=== PATIENT | female | born 1965 | race Caucasian/White ===

== ENCOUNTER → 2018-05-29 19:22 | Outpatient (CLI) | payer OTHER, SELFPAY | PROVIDERS: PCP Family Medicine; Visit Provider Physician Assistant | DX: N39.0 Urinary tract infection, site not specified (principal) | CPT/HCPCS: 87086 ==

== ENCOUNTER → 2018-10-20 14:11 | Outpatient (CLI) | payer OTHER, SELFPAY ==
[2018-10-20 15:18] LABS: Free T3, Triiodothyronine Free 3.43 pg/mL (2.77-5.27); Free T4, Direct Thyroxine 1.09 ng/dL (0.78-2.19)
[2018-10-20 15:32] LABS: Thyroid Stimulating Hormone 0.99 uIU/mL (0.47-4.68)
== END ==
PROVIDERS: PCP Family Medicine; Visit Provider Family Medicine
DX: E04.9 Nontoxic goiter, unspecified (principal)
CPT/HCPCS: 36415; 84439; 84443; 84481

== ENCOUNTER → 2018-11-03 12:16 | Outpatient (CLI) | payer OTHER, SELFPAY ==
--- NOTE | 2018-11-03 12:17 | DI.MG.S_ITS ---
BILATERAL DIGITAL SCREENING MAMMOGRAM 3D/2D WITH CAD: 11/03/2018 CLINICAL: Routine screening. Family history of breast cancer. Comparison is made to exams dated: 10/28/2017 mammogram, 10/20/2016 mammogram, and 10/16/2015 mammogram - [facility]. There are scattered fibroglandular elements in both breasts. Current study was also evaluated with a Computer Aided Detection (CAD) system. No significant masses, calcifications, or other findings are seen in either breast. There has been no significant interval change. IMPRESSION: NEGATIVE There is no mammographic evidence of malignancy. A 1 year screening mammogram is recommended. This exam was interpreted at Station ID: [id number]. NOTE: For mammograms, a report in lay terms will be sent to the patient. Approximately 15% of breast malignancies will not be visualized mammographically. In the management of a palpable breast mass, a negative mammogram must not discourage biopsy of a clinically suspicious lesion. Electronically Signed By: Belen hunter/colleen:11/03/2018 19:17:26 letter sent: Normal Exam ACR BI-RADS Category 1: Negative 3341F
== END ==
PROVIDERS: PCP Family Medicine; Visit Provider Obstetrics & Gynecology
DX: Z12.31 Encounter for screening mammogram for malignant neoplasm of breast (principal); Z80.3 Family history of malignant neoplasm of breast
CPT/HCPCS: 77063; 77067

== ENCOUNTER 2019-06-21 06:49 | Day surgery (SDC) | payer OTHER, SELFPAY ==
[2019-06-21] VITALS (7 sets, daily range): BP systolic 105–128; BP diastolic 73–84; PULSE 52–66; RESP 15–18; TEMP 36.1–36.4; O2SAT 92–98; BMI 32.7
--- NOTE | 2019-06-21 | PATH_ITS ---
[facility] Accession Number: [id number] . 01 Material submitted: . PART A: gastrointestinal site - RANDOM STOMACH BIOPSIES PART B: esophagus - ESOPHAGEAL BIOPSIES . 02 Diagnosis: A. Stomach, Biopsies: Gastric antral and body mucosa with mild chronic inflammation. Negative for Helicobacter organisms by immunohistochemistry. Negative for intestinal metaplasia, dysplasia or malignancy. . B. Esophagus, Biopsies: Squamocolumnar junctional mucosa with ulcer, consistent with reflux esophagitis. Negative for fungal organisms on PAS stain. Negative for specialized intestinal metaplasia on alcian blue stain. Negative for dysplasia or malignancy. [facility]V 06/23/2019 1407 Local . 02 Electronically signed: . Rafita Sanders MD, PhD, Pathologist NPI- [id number] . 01 Gross description: . Part A: RANDOM STOMACH BIOPSIES: Received in formalin are multiple fragment(s) of mcmullen, soft tissue measuring 0.1 x 0.1 x 0.1 cm to 0.4 x 0.2 x 0.1 cm which is entirely submitted and submitted entirely in 1 cassette(s) Part B: ESOPHAGEAL BIOPSIES: Received in formalin are multiple fragment(s) of mcmullen, soft tissue measuring 0.1 x 0.1 x 0.1 cm to 0.3 x 0.3 x 0.2 cm which is entirely submitted and submitted entirely in 1 cassette(s) /[facility] [place]/21/2019 192 Local . 02 Microscopic: . Part A: An immunohistochemical stain is performed to evaluate for Helicobacter organisms, and is negative. A control stain shows appropriate reactivity. . Part B: An alcian blue stain is negative for goblet cells; no fungal organisms are identified. A control stain shows expected reactivity. . * This test was developed and its performance characteristics determined by [employer]. It has not been cleared or approved by the U.S. Food and Drug Administration. The FDA has determined that such clearance or approval is not necessary. This test is used for clinical purposes. It should not be regarded as investigational or for research. . 02 Pathologist provided ICD-10: R13.10, K29.70, K21.0 . 02 CPT . 433543, 526439, B20488, 291810 Performed at: 01 [facility] [address] [place] [address], [place], [place] [id number] MD David Modi MD Phone: [phone] Performed at: 02 [facility] [address] [place] [id number] MD Carol Ann Camejo MD Phone: [phone]
--- NOTE | 2019-06-21 08:03 | PM.HP.1 ---
History of Present Illness History of Present Illness Date Patient Seen: 06/21/19 Time Patient Seen: 08:03 Chief complaint: [id number] Narrative: The patient is a woman here with dysphagia. She is scheduled for an EGD and possible dilatation. Patient History Medical History delivery delivered (Acute) Goiter (Acute) Melanoma (Acute) Prolapsed bladder (Acute) Surgical History Status post delivery Family History (Updated 05/17/19 @ 16:07 by Amy Green, RN) Mother Hypertension Father Cancer Sister Gallstones Social History (Updated 05/17/19 @ 16:07 by Amy Green, RN) Smoking Status: Never smoker Family & Social History Family History Mother Hypertension Father Cancer Sister Gallstones Tobacco & Substance use: Smoking Status Never smoker Meds Home Medications and Allergies Home Medications Medication Instructions Recorded Confirmed Type zinc 50 mg tablet 50 mg PO DAILY 05/17/19 06/21/19 History mv,Ca,min-iron fupp-UJ-qyntiv 1 tab PO DAILY 06/21/19 06/21/19 History [Hair,Skin and Nails] Allergies Allergy/AdvReac Type Severity Reaction Status Date / Time iodine [IODINE] Allergy Mild Rash Verified 06/21/19 07:06 latex [LATEX] Allergy Mild itching Verified 06/21/19 07:06 amoxicillin [AMOXICILLIN] Allergy Unknown Daughters Verified 06/21/19 07:06 are allergic to it.Doesnt want to take this Review of Systems Review of Systems ROS Unobtainable: All systems reviewed & are unremarkable except as noted in HPI and below Exam Vital Signs (past 8 hours): - 06/21/19 07:12 Temperature 97.4 F L Pulse Rate 58 L Respiratory Rate 15 Blood Pressure 113/83 Pulse Oximetry 93 Oxygen Delivery Method Room Air Narrative Exam Narrative: Pleasant cooperative patient no apparent distress. Lungs are clear to auscultation. No rales or rhonchi. Heart regular rate and rhythm no murmur gallop. Abdomen is soft nontender without mass. No obvious hernias. Patient is alert and oriented x3. Assessment & Plan Assessment & Plan narrative: Patient for an EGD and possible dilatation. I have discussed procedure. She understands the risks of bleeding and perforation. She wishes to proceed.
--- NOTE | 2019-06-21 08:05 | PM.PREOP ---
Pre-operative Note Interval Note History & Physical reviewed/Exam performed by Physician: Yes Changes to H&P: No ASA Class (for procedural sedation): I
[2019-06-21] MEDS: SODIUM CHLORIDE 0.9% 1,000 ML 200 ML IV (08:07)
[2019-06-21] MEDS: LIDOCAINE 4% SOLN 50 ML 20 ML TOP (08:12)
[2019-06-21] MEDS: fentaNYL 250 MCG/5 ML INJ IV (08:34)
[2019-06-21] MEDS: MIDAZOLAM 5 MG/5 ML VIAL IV (08:35)
--- NOTE | 2019-06-21 08:37 | PM.OP.ENDO ---
Operative Date/Time/Diagnoses Date of procedure: 06/21/19 Time of procedure: 08:37 Pre-op diagnosis: Dysphagia Post-op diagnosis: same (Distal esophageal ulcers. Small hiatal hernia. Duodenitis.) Procedure & Clinicians Study performed: EGD with cold biopsies Same procedure as scheduled: Yes Indications: Determine cause of dysphagia Surgeon: Danny Lundberg Procedure Notes SCOAP/Timeout: Performed Procedure in detail: The patient had topical anesthetic applied to oropharynx. She was placed in left lateral decubitus position and underwent IV sedation directed by the surgeon consisting of fentanyl and Versed. A bite block was inserted and the scope was advanced through it into the esophagus. The esophagus was remarkable for linear ulcerations with exudate on some of them. They extended from a few cm above the GE junction to the GE junction. They were not typical of but could represent Esparza's esophagus. GE junction was noted at 37 cm from the incisors. The stomach insufflated well. There were no lesions seen in the body, or at the incisura but the antrum had some punctate areas of inflammation.. The pyloric channel was patent. The duodenal bulb had numerous areas of inflammation but no tanvir ulceration. The remainder of the duodenum Was unremarkable to the 4th part. The scope was brought back into the stomach and retroflexed. The proximal stomach had no inflammation but there was a small hiatal hernia noted from below. Biopsies were taken randomly in the area of the antrum.. The scope was straightened and brought out through the esophagus again. Biopsies were taken of the ulcerations of the distal esophagus. No other lesions were seen. The scope was removed and the patient tolerated the procedure well. No stricture of the distal esophagus was seen. Scope withdrawal time: Not applicable Sedation minutes: 12 Findings: hiatal hernia (Small) and other findings (Duodenitis and esophageal ulcers) Specimen(s): other (Gastric and esophageal biopsies) Complications: none Impression: Dysphagia thought to be caused by the ulceration of her distal esophagus and probable failure of motility in that area due to inflammation. Post-procedure Recommendations: Start medication(s) (Proton pump inhibitor) Plan for aftercare: Follow-up in 1 month Follow up: months (One) Disposition: PACU
== END 2019-06-21 09:18 | disposition home or self-care (01) ==
PROVIDERS: PCP Family Medicine; Visit Provider Specialist
PROC: 0DJ08ZZ Inspection of Upper Intestinal Tract, Via Natural or Artificial Opening Endoscopic (ICD-10-PCS; CPT 43235; principal; 2019-06-21 07:45)
DX: K22.10 Ulcer of esophagus without bleeding (principal); K44.9 Diaphragmatic hernia without obstruction or gangrene; K29.80 Duodenitis without bleeding; K29.70 Gastritis, unspecified, without bleeding; K21.0 Gastro-esophageal reflux disease with esophagitis
CPT/HCPCS: 43239; 99152; J2250; J3010

== ENCOUNTER → 2019-07-29 08:11 | Outpatient (CLI) | payer OTHER, SELFPAY ==
[2019-07-29 08:57] LABS: Add Manual Diff / Slide Review NO; Basophils Absolute Auto 0 /uL (0-100); Basophils Percent Auto 0.9 % (0-2); Eosinophils Absolute Auto 100 /uL (0-450); Eosinophils Percent Auto 2.2 % (2-4); Hemoglobin 13.7 g/dL (12.0-16.0); Lymphocytes Absolute Auto 1600 /uL (1100-4500); Lymphocytes Percent Auto 37.9 % (25-40); Mean Corpuscular HGB Conc 34.3 % (30-36); Mean Corpuscular Hemoglobin 29.9 PG (26-34); Mean Corpuscular Volume 87.1 fL (80-100); Monocytes Absolute Auto 300 /uL (0-900); Monocytes Percent Auto 7.8 % (3-14); Neutrophils Absolute Auto 2200 /uL (1500-7000); Neutrophils Percent Auto 51.2 % (50-75); Platelet Count 195 X10^3/uL (150-400); Red Blood Cell Count 4.59 X10^6/uL (4.0-5.2); Red Cell Distribution Width 12.6 % (11.6-14.8); White Blood Cell Count 4.3 X10^3/uL (4.5-11.0)
[2019-07-29 09:20] LABS: Alanine Aminotransferase 41 IU/L (<35); Albumin 4.2 g/dL (3.5-5.0); Albumin Globulin Ratio 1.7 (1.0-2.8); Alkaline Phosphatase 80 U/L (38-126); Aspartate Aminotransferase 31 IU/L (14-36); BUN Creatinine Ratio 21.4 (6-22); Bilirubin Total 0.6 mg/dL (0.2-1.3); Blood Urea Nitrogen 15 mg/dL (7-17); Calcium 9.7 mg/dL (8.4-10.2); Carbon Dioxide 30 mmol/L (22-32); Chloride 102 mmol/L (98-107); Cholesterol 201 mg/dL (140-199); Estimated Glomerular Filt Rate > 60.0 mL/min (>60); Globulin 2.5 g/dL (1.7-4.1); Glucose 98 mg/dL (70-100); HDL Cholesterol 53 mg/dL (40-60); HEMOLYSIS < 15 (0-50); LDL Cholesterol Calculated 137 mg/dL (<100); Potassium 4.2 mmol/L (3.4-5.1); Sodium 139 mmol/L (137-145); Total Protein 6.7 g/dL (6.3-8.2); Triglycerides 55 mg/dL (35-150)
== END ==
PROVIDERS: PCP Family Medicine; Visit Provider Family Medicine
DX: Z00.00 Encounter for general adult medical examination without abnormal findings (principal); Z13.220 Encounter for screening for lipoid disorders
CPT/HCPCS: 36415; 80053; 80061; 85025

== ENCOUNTER → 2019-08-04 12:35 | Outpatient (CLI) | payer OTHER, SELFPAY ==
[2019-08-04 13:46] LABS: Thyroid Stimulating Hormone 1.23 uIU/mL (0.47-4.68)
== END ==
PROVIDERS: PCP Family Medicine; Visit Provider Internal Medicine Endocrinology, Diabetes & Metabolism
DX: E04.2 Nontoxic multinodular goiter (principal)
CPT/HCPCS: 36415; 84443

== ENCOUNTER → 2019-08-10 08:13 | Outpatient (CLI) | payer OTHER, SELFPAY ==
--- NOTE | 2019-08-10 | DI.US.S_ITS ---
PROCEDURE: US THYROID INDICATIONS: Nontoxic multinodular goiter TECHNIQUE: Real-time scanning was performed of the thyroid gland, with image documentation. COMPARISON: [facility], US, THYROID, 07/22/2016, 12:11. FINDINGS: Right: Thyroid lobe measures 5.6 x 2.1 x 2.2 cm, and is homogeneous in echotexture. Left: Thyroid lobe measures 6.1 x 2.8 x 2.8 cm, and is homogenous in echotexture. Isthmus: 1.0 mm thick. Nodule number: 1 Location: Right superior Size: Unchanged at 0.8 x 0.6 x 0.4 cm. Composition: Solid Echogenicity: Hypoechoic Shape: wider than tall. Margins: Smooth Echogenic foci: None Total points: 4 ACR TI-RADS category: Moderately suspicious Nodule number: 2 Location: Right lower Size: Unchanged 0.9 x 0.7 x 0.6 Composition: Predominantly cystic Echogenicity: Hypoechoic Shape: wider than tall. Margins: Smooth Echogenic foci: None Total points: 2 ACR TI-RADS category: No suspicious Nodule number: 3 Location: Right lower Size: Slightly increased at 1.2 x 1.0 x 0.9 cm. Composition: Mixed cystic and solid Echogenicity: Hypoechoic Shape: wider than tall. Margins: Smooth Echogenic foci: None Total points: 3 ACR TI-RADS category: Mildly suspicious Nodule number: 4 Location: Left mid inferior Size: Unchanged at 3.2 x 2.0 x 2.4 cm. Composition: Solid Echogenicity: Isoechoic Shape: wider than tall. Margins: Smooth Echogenic foci: None Total points: 3 ACR TI-RADS category: Mildly suspicious Nodule number: 5 Location: Left mid Size: Unchanged 0.6 x 0.6 x 0.6 cm. Composition: Solid Echogenicity: Isoechoic Shape: wider than tall. Margins: Smooth Echogenic foci: None Total points: 3 ACR TI-RADS category: Mildly suspicious Nodule number: 6 Location: Left mid Size: 0.8 x 0.6 x 0.5 cm. Composition: Predominantly cystic Echogenicity: Hypoechoic Shape: wider than tall. Margins: Smooth Echogenic foci: None Total points: 4 ACR TI-RADS category: Moderately suspicious IMPRESSION: Thyroid nodules as above. Recommend continued followup ultrasound as detailed below. ACR TI-RADS definitions and recommendations: TI-RADS 1 (benign): 0 points. FNA not needed. TI-RADS 2 (not suspicious): 2 points. FNA not needed. TI-RADS 3 (mildly suspicious): 3 points. * FNA if 2.5 cm or larger, follow up if 1.5 cm or larger (at 1, 3, and 5 years). TI-RADS 4 (moderately suspicious): 4-6 points. * FNA if 1.5 cm or larger, follow up if 1 cm or larger (at 1, 2, 3, and 5 years). TI-RADS 5 (highly suspicious): 7 points or more. * FNA if 1 cm or larger, follow up if 0.5 cm or larger (every year for 5 years). Dictated by: Elias HESTER Interpreted: Pritesh Telles MD on 08/12/2019 at 8:17 Approved by: Pritesh Telles M.D. on 08/12/2019 at 16:50
== END ==
PROVIDERS: PCP Family Medicine; Visit Provider Internal Medicine Endocrinology, Diabetes & Metabolism
DX: E04.2 Nontoxic multinodular goiter (principal)
CPT/HCPCS: 76536

== ENCOUNTER 2019-10-27 07:34 | Day surgery (SDC) | payer OTHER, SELFPAY ==
--- NOTE | 2019-10-27 | PATH_ITS ---
[facility] Accession Number: [id number] . 01 Material submitted: . esophagus, E-G Junction - BIOPSY GE JUNCTION . 02 Diagnosis: Biopsy, GE Junction: Squamocolumnar junctional mucosa with no diagnostic abnormality. Negative for intestinal metaplasia. Negative for dysplasia and malignancy. . [facility] 10/28/2019 1432 Local . 02 Electronically signed: . Rosa Leon MD, Pathologist NPI- [id number] . 01 Gross description: . BIOPSY GE JUNCTION: Received in formalin is 1 fragment(s) of mcmullen, soft tissue measuring 0.1 x 0.1 x 0.1 cm submitted entirely in 1 cassette(s) /[facility] [place] 10/27/2019 1906 Local . 02 Pathologist provided ICD-10: K22.10, K20.9 . 02 CPT . 403699 Performed at: [address] [facility] [address] [facility] [place]note 2], [place], [place] [id number] MD David Modi MD Phone: [phone] Performed at: 02 [facility] [address] [place], [place] [id number] MD Carol Ann Camejo MD Phone: [phone]
[2019-10-27] MEDS: SODIUM CHLORIDE 0.9% 1,000 ML 200 ML IV (08:00)
[2019-10-27 08:03] VITALS: BP 115/79; PULSE 58; RESP 15; TEMP 36.8; O2SAT 92; BMI 32.1
[2019-10-27] MEDS: fentaNYL 250 MCG/5 ML INJ IV (09:27)
[2019-10-27] MEDS: MIDAZOLAM 5 MG/ML VIAL 1 MG IV (09:28)
[2019-10-27] MEDS: LIDOCAINE 4% SOLN 50 ML 20 ML TOP (09:30)
--- NOTE | 2019-10-27 09:33 | PM.HP.1 ---
History of Present Illness History of Present Illness Date Patient Seen: 10/27/19 Time Patient Seen: 09:33 Chief complaint: [id number] Narrative: The patient is woman who had an ulcer discovered on EGD. It was located in the distal esophagus. She is here for follow-up exam after 3 months of treatment to see if the lesion is healed. She has the sensation sometimes the bread sticks but otherwise nothing else is bothered. She has no trouble eating meat. Patient History Medical History delivery delivered (Acute) Goiter (Acute) Melanoma (Acute) Prolapsed bladder (Acute) Surgical History Status post delivery Family & Social History Family History Mother Hypertension Father Cancer Sister Gallstones Social History: household members children Tobacco & Substance use: Smoking Status Never smoker alcohol intake current alcohol intake frequency a few times a month Substance Use Type does not use Meds Home Medications and Allergies Home Medications Medication Instructions Recorded Confirmed Type zinc 50 mg tablet 50 mg PO DAILY 05/17/19 10/27/19 History Hair,Skin and Nails 1 tab PO DAILY 06/21/19 10/27/19 History omeprazole 20 mg PO BID #60 cap 06/21/19 10/27/19 Rx Allergies Allergy/AdvReac Type Severity Reaction Status Date / Time iodine [IODINE] Allergy Mild Rash Verified 10/27/19 07:53 latex [LATEX] Allergy Mild itching Verified 10/27/19 07:53 amoxicillin [AMOXICILLIN] Allergy Unknown Daughters Verified 10/27/19 07:53 are allergic to it.Doesnt want to take this Review of Systems Review of Systems ROS: Yes All systems reviewed with the patient and are negative except as otherwise documented Exam Vital Signs (past 8 hours): - 10/27/19 08:03 Temperature 98.2 F Pulse Rate 58 L Respiratory Rate 15 Blood Pressure 115/79 Pulse Oximetry 92 Oxygen Delivery Method Room Air Narrative Exam Narrative: Pleasant cooperative patient no apparent distress. Lungs are clear to auscultation. No rales or rhonchi. Heart regular rate and rhythm no murmur gallop. Abdomen is soft nontender without mass. No obvious hernias. Patient is alert and oriented x3. Assessment & Plan Assessment & Plan narrative: Plan is to perform an EGD. I have discussed procedure including risks of bleeding perforation. She appears to understand wishes to proceed
--- NOTE | 2019-10-27 09:34 | PM.PREOP ---
Pre-operative Note Interval Note History & Physical reviewed/Exam performed by Physician: Yes Changes to H&P: No ASA Class (for procedural sedation): I
--- NOTE | 2019-10-27 09:52 | PM.OP.ENDO ---
Operative Date/Time/Diagnoses Date of procedure: 10/27/19 Time of procedure: 09:52 Pre-op diagnosis: History of esophageal ulcer Post-op diagnosis: same (Ulcer is healed) Procedure & Clinicians Study performed: EGD with cold biopsy Same procedure as scheduled: Yes Indications: Determine healing of an ulcer Surgeon: Danny Lundberg Procedure Notes SCOAP/Timeout: Performed Procedure in detail: The patient had topical anesthetic applied to oropharynx. She was placed in left lateral decubitus position and underwent IV sedation directed by the surgeon consisting of fentanyl and Versed. A bite block was inserted and the scope was advanced through it into the esophagus. The esophagus was unremarkable. GE junction was noted at 38 cm from the incisors. At this level there was a sharp demarcation to gastric mucosa and there was evidence of a Schatzki ring but the esophagus itself was widely patent. The stomach insufflated well. There were no lesions seen in the body, antrum or at the incisura. The pyloric channel was patent. The duodenum was unremarkable to the 3rd part. The scope was brought back into the stomach and retroflexed. The proximal stomach remarkable for a small hiatal hernia. The scope was straightened and brought out through the esophagus again. The hiatal hernia was noted and biopsies were taken at the GE junction. No other lesions were seen except the previously noted Schatzki ring. The scope was removed and the patient tolerated the procedure well. Scope withdrawal time: Not applicable Sedation minutes: 9 Findings: hiatal hernia (Small) and other findings (Schatzki ring at the GE junction. Esophageal Ulcer healed) Specimen(s): other (GE junction biopsies) Complications: none Post-procedure Recommendations: Continue medication(s) (But reduced dose to once a day) Follow up: as needed Disposition: PACU
[2019-10-27 09:58] VITALS: BP 124/83; PULSE 51; RESP 11; TEMP 36.1; O2SAT 96
[2019-10-27 10:02] VITALS: BP 124/81; PULSE 54; RESP 13; TEMP 36.1; O2SAT 95
[2019-10-27 10:08] VITALS: BP 124/85; PULSE 62; RESP 13; TEMP 36.2; O2SAT 98
[2019-10-27 10:13] VITALS: BP 112/79; PULSE 50; RESP 16; TEMP 36.2; O2SAT 98
--- NOTE | 2019-10-27 10:19 | SUR.PHASEI ---
Clarified with physician that patient does not take omeprazole at home, but takes 20mg famotidine daily. Order received to have patient continue famotidine as she has been doing and disregard note about omeprazole. Patient updated on orders.
[2019-10-27 10:25] VITALS: BP 112/72; PULSE 50; RESP 18; TEMP 36.4; O2SAT 98
== END 2019-10-27 10:30 | disposition home or self-care (01) ==
PROVIDERS: PCP Naturopath; Referring Provider Specialist; Visit Provider Specialist
PROC: 0DJ08ZZ Inspection of Upper Intestinal Tract, Via Natural or Artificial Opening Endoscopic (ICD-10-PCS; CPT 43235; principal; 2019-10-27 08:45)
DX: K22.2 Esophageal obstruction (principal); Z87.19 Personal history of other diseases of the digestive system; K44.9 Diaphragmatic hernia without obstruction or gangrene
CPT/HCPCS: 43239; 99152; J2250; J3010

== ENCOUNTER → 2019-11-24 09:23 | Outpatient (CLI) | payer OTHER, SELFPAY ==
--- NOTE | 2019-11-24 | DI.MG.S_ITS ---
BILATERAL DIGITAL SCREENING MAMMOGRAM 3D/2D WITH CAD: 11/24/2019 CLINICAL: Routine screening. Family history of breast cancer. Comparison is made to exams dated: 11/03/2018 mammogram, 10/28/2017 mammogram, and 10/20/2016 mammogram - [facility]. There are scattered fibroglandular elements in both breasts. Current study was also evaluated with a Computer Aided Detection (CAD) system. No significant masses, calcifications, or other findings are seen in either breast. There has been no significant interval change. IMPRESSION: NEGATIVE There is no mammographic evidence of malignancy. A 1 year screening mammogram is recommended. This exam was interpreted at Station ID: [id number]. NOTE: For mammograms, a report in lay terms will be sent to the patient. Approximately 15% of breast malignancies will not be visualized mammographically. In the management of a palpable breast mass, a negative mammogram must not discourage biopsy of a clinically suspicious lesion. Electronically Signed By: Belen hunter/colleen:11/24/2019 17:31:54 letter sent: Normal Exam ACR BI-RADS Category 1: Negative 3341F
== END ==
PROVIDERS: PCP Naturopath; Referring Provider Naturopath; Visit Provider Naturopath
DX: Z12.31 Encounter for screening mammogram for malignant neoplasm of breast (principal); Z80.3 Family history of malignant neoplasm of breast
CPT/HCPCS: 77063; 77067

== ENCOUNTER → 2020-03-07 08:14 | Outpatient (CLI) | payer OTHER, SELFPAY ==
[2020-03-07 09:52] LABS: Alanine Aminotransferase 32 IU/L (<35); Albumin 4.3 g/dL (3.5-5.0); Albumin Globulin Ratio 1.5 (1.0-2.8); Alkaline Phosphatase 78 U/L (38-126); Aspartate Aminotransferase 37 IU/L (14-36); Bilirubin Total 0.6 mg/dL (0.2-1.3); Bilirubin Unconjugated 0.6 mg/dL (0.0-1.1); Globulin 2.8 g/dL (1.7-4.1); HEMOLYSIS < 15 (0-50); Total Protein 7.1 g/dL (6.3-8.2)
[2020-03-07 10:06] LABS: Free T3, Triiodothyronine Free 3.58 pg/mL (2.77-5.27); Free T4, Direct Thyroxine 1.19 ng/dL (0.78-2.19)
[2020-03-07 10:20] LABS: Thyroid Stimulating Hormone 1.27 uIU/mL (0.47-4.68)
[2020-03-07 23:07] LABS: Thyroid Peroxidase Antibodies <9 IU/mL (0-34)
== END ==
PROVIDERS: PCP Naturopath; Referring Provider Naturopath; Visit Provider Naturopath
DX: E03.9 Hypothyroidism, unspecified (principal); R94.5 Abnormal results of liver function studies
CPT/HCPCS: 36415; 80076; 84439; 84443; 84481; 86376

== ENCOUNTER → 2020-06-11 13:16 | Outpatient (CLI) | payer OTHER, SELFPAY ==
[2020-06-13 08:34] LABS: COVID19 Sendout Not Detected (Not Detect)
== END ==
PROVIDERS: PCP Naturopath; Visit Provider Physician Assistant
DX: Z11.59 Encounter for screening for other viral diseases (principal)
CPT/HCPCS: 87635

== ENCOUNTER 2020-06-14 13:04 | Day surgery (SDC) | payer OTHER, SELFPAY ==
[2020-06-14] VITALS (7 sets, daily range): BP systolic 103–120; BP diastolic 70–92; PULSE 44–71; RESP 13–22; TEMP 36.6–37; O2SAT 95–99; BMI 32.1
[2020-06-14] MEDS: LACTATED RINGERS 1,000 ML 200 ML IV (13:40)
--- NOTE | 2020-06-14 14:15 | PM.HP.1 ---
History of Present Illness History of Present Illness Date Patient Seen: 06/14/20 Time Patient Seen: 14:16 Chief complaint: MAC Narrative: The patient presents for colorectal sreening. Insert previous colonoscopy 5 years ago which demonstrated adenomatous polyps which were removed. No personal or family history of colon cancer. On further history denies any recent gastrointestinal symptoms. No nausea, vomiting, abdominal pain, loss of appetite, unexplained weight loss, change in bowel habits, diarrhea, constipation, melena, hematochezia, or bright red blood per rectum. Patient History Medical History delivery delivered (Acute) Goiter (Acute) Melanoma (Acute) Prolapsed bladder (Acute) Surgical History Status post delivery Family & Social History Family History Mother Hypertension Father Cancer Sister Gallstones Social History: household members children Tobacco & Substance use: Smoking Status Never smoker alcohol intake current alcohol intake frequency a few times a month Substance Use Type does not use Meds Home Medications and Allergies Home Medications Medication Instructions Recorded Confirmed Type zinc 50 mg tablet 50 mg PO DAILY 05/17/19 02/08/20 History Hair,Skin and Nails 1 tab PO DAILY 06/21/19 02/08/20 History Alba Plax supplement PO 02/14/20 02/14/20 History Allergies Allergy/AdvReac Type Severity Reaction Status Date / Time iodine [IODINE] Allergy Mild Rash Verified 06/11/20 13:23 latex [LATEX] Allergy Mild itching Verified 06/11/20 13:23 amoxicillin [AMOXICILLIN] Allergy Unknown Daughters Verified 06/11/20 13:23 are allergic to it.Doesnt want to take this Review of Systems Review of Systems Narrative: A 10 point review of systems is negative except as noted in the HPI Exam Vital Signs (past 8 hours): - 06/14/20 13:26 Temperature 97.9 F Pulse Rate 57 L Respiratory Rate 16 Blood Pressure 103/70 Pulse Oximetry 95 Oxygen Delivery Method Room Air Narrative Exam Narrative: General-no acute distress, well nourished adult woman HEENT-moist mucous membranes, no scleral icterus Neck-supple, no lymphadenopathy Chest- non labored respirations, clear to auscultation bilaterally Cardiac-regular rate no peripheral edema Abdomen-soft, nontender, non distended Extremities-warm, well perfused Neurological-alert and oriented, no focal deficits Assessment & Plan Assessment and plan (1) Screening for colon cancer: Status: Acute Assessment & Plan narrative: The patient requires colorectal screening and colonoscopy is recommended. Technical details were discussed. Risks, benefits, alternatives explained. Risks including but not limited to myocardial infarction, aspiration, bleeding, pain, missed lesion, incomplete examination, need for further radiographic studies, colonic perforation, and need for major abdominal surgery were discussed. All questions were answered to their satisfaction, and they are in agreement with this plan.
[2020-06-14] MEDS: fentaNYL 250 MCG/5 ML INJ IV (14:30)
[2020-06-14] MEDS: MIDAZOLAM 5 MG/5 ML VIAL IV (14:30)
--- NOTE | 2020-06-14 14:45 | PM.OP.ENDO ---
Operative Date/Time/Diagnoses Date of procedure: 06/14/20 Time of procedure: 14:45 Pre-op diagnosis: Screening colonoscopy Post-op diagnosis: same Procedure & Clinicians Study performed: Colonoscopy Same procedure as scheduled: Yes Indications: 55-year-old woman last colonoscopy 5 years ago demonstrated adenomatous polyps is here for routine screening Surgeon: Hernandez Villatoro Procedure Notes SCOAP/Timeout: Performed Procedure in detail: Patient placed in left lateral recumbent position. Time out was performed. Procedural sedation was administered with Versed and Fentanyl. Examination began with a thorough inspection of the perianal area there was no evidence of fissures, fistulae, external hemorrhoids or cutaneous malignancy. The colonoscopy scope was then placed into the rectum the the lumen was insufflated with air. The scope was carefully advanced forward. Ultimately the cecum was intubated and confirmed by identification of the ileocecal valve, the appendiceal orifice and the confluence of the taenia. The scope was then slowly withdrawn examining colon thoroughly in all directions. In the rectum the rectal columns were identified and retroflexion of the scope was performed for inspection of the distal rectum and anal canal. The colonoscopy was notable for the followin. Quality of the preparation-excellent 2. No masses or polyps 3. Grade 1 internal hemorrhoids Scope withdrawal time: 9 Sedation minutes: 21 Findings: internal hemorrhoids Specimen(s): none sent Complications: none Impression: Normal colonoscopy Post-procedure Recommendations: Colonscopy in 10 years Disposition: same day surgery
== END 2020-06-14 15:31 | disposition home or self-care (01) ==
PROVIDERS: PCP Naturopath; Referring Provider Surgery; Visit Provider Surgery
PROC: 0DJD8ZZ Inspection of Lower Intestinal Tract, Via Natural or Artificial Opening Endoscopic (ICD-10-PCS; CPT 45378; principal; 2020-06-14 14:30)
DX: Z12.11 Encounter for screening for malignant neoplasm of colon (principal); Z86.010 Personal history of colon polyps; K64.0 First degree hemorrhoids
CPT/HCPCS: 45378; 99152; J2250; J3010

== ENCOUNTER → 2020-08-31 07:23 | Outpatient (CLI) | payer OTHER, SELFPAY ==
[2020-08-31 08:47] LABS: Total Iron Binding Capacity 306 ug/dL (265-497)
[2020-08-31 09:10] LABS: Estradiol, Total 27.4 pg/mL
[2020-08-31 09:12] LABS: Ferritin 61 ng/mL (11-264)
[2020-09-05 04:28] LABS: Percent Free Testosterone 2.22 % (0.50-2.80); Testosterone Free 0.37 ng/dL (0.10-0.85); Testosterone Total 16.7 ng/dL (.)
== END ==
PROVIDERS: PCP Naturopath; Referring Provider Dermatology; Visit Provider Dermatology
DX: L63.9 Alopecia areata, unspecified (principal)
CPT/HCPCS: 36415; 82627; 82670; 82728; 83550; 84402; 84403

== ENCOUNTER → 2020-11-28 08:15 | Outpatient (CLI) | payer BC, SELFPAY ==
--- NOTE | 2020-11-28 | DI.MG.S_ITS ---
BILATERAL DIGITAL SCREENING MAMMOGRAM 3D/2D WITH CAD: 11/28/2020 CLINICAL: Routine screening. Family history of breast cancer. Comparison is made to exams dated: 11/24/2019 mammogram, 11/03/2018 mammogram, and 10/28/2017 mammogram - [facility]. There are scattered fibroglandular elements in both breasts. Current study was also evaluated with a Computer Aided Detection (CAD) system. No significant masses, calcifications, or other findings are seen in either breast. There has been no significant interval change. IMPRESSION: NEGATIVE There is no mammographic evidence of malignancy. A 1 year screening mammogram is recommended. This exam was interpreted at Station ID: [id number]. NOTE: For mammograms, a report in lay terms will be sent to the patient. Approximately 15% of breast malignancies will not be visualized mammographically. In the management of a palpable breast mass, a negative mammogram must not discourage biopsy of a clinically suspicious lesion. Electronically Signed By: James perales/colleen:11/28/2020 13:58:49 letter sent: Normal Exam ACR BI-RADS Category 1: Negative 3341F
== END ==
PROVIDERS: PCP Naturopath; Referring Provider Naturopath; Visit Provider Naturopath
DX: Z12.31 Encounter for screening mammogram for malignant neoplasm of breast (principal)
CPT/HCPCS: 77063; 77067

== ENCOUNTER → 2021-02-01 09:28 | Outpatient (CLI) | payer BC, SELFPAY ==
[2021-02-02 08:12] LABS: Mumps Virus IgG Antibody 13.3 AU/mL (Immune >10.9); Rubeola Measles IgG < 13.5 AU/mL (Immune >16.4)
== END ==
PROVIDERS: PCP Naturopath; Referring Provider Naturopath; Visit Provider Naturopath
DX: Z01.84 Encounter for antibody response examination (principal)
CPT/HCPCS: 36415; 86735; 86762; 86765

== ENCOUNTER → 2021-08-02 07:19 | Outpatient (CLI) | payer OTHER, SELFPAY ==
[2021-08-02 08:31] LABS: Add Manual Diff / Slide Review NO; Basophils Absolute Auto 0 /uL (0-100); Basophils Percent Auto 0.8 % (0-2); Eosinophils Absolute Auto 100 /uL (0-450); Eosinophils Percent Auto 3.3 % (2-4); Hematocrit 41.6 % (36-46); Hemoglobin 13.9 g/dL (12.0-16.0); Lymphocytes Absolute Auto 1500 /uL (1100-4500); Lymphocytes Percent Auto 33.2 % (25-40); Mean Corpuscular HGB Conc 33.4 % (30-36); Mean Corpuscular Hemoglobin 29.5 PG (26-34); Mean Corpuscular Volume 88.2 fL (80-100); Monocytes Absolute Auto 400 /uL (0-900); Monocytes Percent Auto 8.4 % (3-14); Neutrophils Absolute Auto 2400 /uL (1500-7000); Neutrophils Percent Auto 54.3 % (50-75); Platelet Count 221 X10^3/uL (150-400); Red Blood Cell Count 4.71 X10^6/uL (4.0-5.2); Red Cell Distribution Width 12.5 % (11.6-14.8); White Blood Cell Count 4.5 X10^3/uL (4.5-11.0)
[2021-08-02 08:50] LABS: Alanine Aminotransferase 21 IU/L (<35); Albumin 4.2 g/dL (3.5-5.0); Albumin Globulin Ratio 1.7 (1.0-2.8); Alkaline Phosphatase 67 U/L (38-126); Aspartate Aminotransferase 25 IU/L (14-36); BUN Creatinine Ratio 21.4 (6-22); Bilirubin Total 0.5 mg/dL (0.2-1.3); Blood Urea Nitrogen 15 mg/dL (7-17); Calcium 9.7 mg/dL (8.4-10.2); Carbon Dioxide 27 mmol/L (22-32); Chloride 106 mmol/L (98-107); Cholesterol 199 mg/dL (140-199); Estimated Glomerular Filt Rate > 60.0 mL/min (>60); Globulin 2.5 g/dL (1.7-4.1); Glucose 94 mg/dL (70-100); HDL Cholesterol 59 mg/dL (40-60); HEMOLYSIS < 15 (0-50); LDL Cholesterol Calculated 126 mg/dL (<100); Potassium 4.2 mmol/L (3.4-5.1); Sodium 140 mmol/L (137-145); Total Protein 6.7 g/dL (6.3-8.2); Triglycerides 71 mg/dL (35-150)
[2021-08-02 09:07] LABS: Free T3, Triiodothyronine Free 3.68 pg/mL (2.77-5.27); Free T4, Direct Thyroxine 0.99 ng/dL (0.78-2.19)
[2021-08-02 09:20] LABS: Thyroid Stimulating Hormone 0.169 uIU/mL (0.47-4.68)
== END ==
PROVIDERS: PCP Naturopath; Referring Provider Naturopath; Visit Provider Naturopath
DX: Z00.00 Encounter for general adult medical examination without abnormal findings (principal); E03.9 Hypothyroidism, unspecified; R94.5 Abnormal results of liver function studies; E04.2 Nontoxic multinodular goiter
CPT/HCPCS: 36415; 80053; 80061; 84439; 84443; 84481; 85025

== ENCOUNTER → 2021-08-19 07:13 | Outpatient (CLI) | payer OTHER, SELFPAY ==
--- NOTE | 2021-08-19 | DI.US.S_ITS ---
PROCEDURE: US THYROID INDICATIONS: GOITER TECHNIQUE: Real-time scanning was performed of the thyroid gland, with image documentation. COMPARISON: [facility], US, US THYROID, 08/10/2019, 8:25. FINDINGS: Right: Thyroid lobe measures 5.2 x 2.4 x 2.6 cm, and is diffusely heterogeneous in echotexture. Left: Thyroid lobe measures 3.6 x 2.5 x 2.5 cm, and is diffusely heterogeneous in echotexture. Isthmus: 1.3 mm thick. Nodule number: 1 Location: Upper pole of right thyroid lobe Size: 0.6 x 0.5 x 0.4 cm compared to 0.8 x 0.6 x 0.4 cm on previous study. Composition: Predominantly solid Echogenicity: Hypoechoic Shape: Wider than tall Margins: Smooth Echogenic foci: None Total points: 4 ACR TI-RADS category: 4, moderately suspicious Nodule number: 2 Location: Lower pole of right thyroid lobe Size: 1 x 0.4 x 0.8 cm, previously measures 0.9 x 0.7 x 0.6 cm. Composition: Predominantly cystic Echogenicity: Hypoechoic Shape: Wider than tall Margins: Smooth Echogenic foci: None Total points: 3 ACR TI-RADS category: 3, mildly suspicious. Nodule number: 3 Location: Mid to lower pole of left thyroid lobe Size: 3.6 x 3.5 x 2.5 cm, previously measures 3.2 x 2 x 2.4 cm. Composition: Solid Echogenicity: Isoechoic Shape: Wider than tall Margins: Ill-defined Echogenic foci: None Total points: 3 ACR TI-RADS category: Mildly suspicious. Nodule number: 4 Location: Mid pole of left thyroid lobe Size: 1 x 0.7 x 0.8 cm, previously measures 0.8 x 0.6 x 0.5 cm in size. Composition: Predominantly cystic Echogenicity: Hypoechoic Shape: Wider than tall Margins: Smooth Echogenic foci: None Total points: 3 ACR TI-RADS category: Mildly suspicious Previously noted 1.2 cm nodule in lower pole of right thyroid lobe is no longer seen. Previously noted 6 mm nodule in mid pole of left thyroid lobe is no longer seen. IMPRESSION: 1. Enlarged thyroid gland with heterogeneous echotexture and multiple thyroid nodules as described above, consistent with nodular goiter. Consider FNA of the 3.6 cm mildly suspicious nodule in mid to lower pole of left thyroid lobe due to its size. ACR TI-RADS definitions and recommendations: TI-RADS 1 (benign): 0 points. FNA not needed. TI-RADS 2 (not suspicious): 2 points. FNA not needed. TI-RADS 3 (mildly suspicious): 3 points. * FNA if 2.5 cm or larger, follow up if 1.5 cm or larger (at 1, 3, and 5 years). TI-RADS 4 (moderately suspicious): 4-6 points. * FNA if 1.5 cm or larger, follow up if 1 cm or larger (at 1, 2, 3, and 5 years). TI-RADS 5 (highly suspicious): 7 points or more. * FNA if 1 cm or larger, follow up if 0.5 cm or larger (every year for 5 years). Dictated by: Barrett Smith M.D. on 08/19/2021 at 11:04 Approved by: Brarett Smith M.D. on 08/19/2021 at 11:11
== END ==
PROVIDERS: PCP Naturopath; Referring Provider Naturopath; Visit Provider Naturopath
DX: E04.2 Nontoxic multinodular goiter (principal)
CPT/HCPCS: 76536

== ENCOUNTER → 2021-09-06 07:53 | Outpatient (CLI) | payer OTHER, SELFPAY ==
[2021-09-06 09:06] LABS: Free T4, Direct Thyroxine 1.13 ng/dL (0.78-2.19)
[2021-09-06 09:20] LABS: Thyroid Stimulating Hormone 1.13 uIU/mL (0.47-4.68)
[2021-09-07 03:10] LABS: Triiodothyronine T3 Total 98 ng/dL (71-180)
[2021-09-09 10:45] LABS: Thyrotropin Receptor AB <1.10 IU/L (0.00-1.75)
== END ==
PROVIDERS: PCP Naturopath; Referring Provider Internal Medicine; Visit Provider Internal Medicine
DX: E04.2 Nontoxic multinodular goiter (principal)
CPT/HCPCS: 36415; 83520; 84439; 84443; 84480

== ENCOUNTER → 2022-01-24 15:16 | Outpatient (CLI) | payer OTHER, SELFPAY ==
--- NOTE | 2022-01-24 15:19 | DI.MG.S_ITS ---
BILATERAL DIGITAL SCREENING MAMMOGRAM 3D/2D WITH CAD: 01/24/2022 CLINICAL: Routine screening. Family history of breast cancer. Comparison is made to exams dated: 11/28/2020 mammogram, 11/24/2019 mammogram, 11/03/2018 mammogram, and 10/28/2017 mammogram - [facility]. There are scattered fibroglandular elements in both breasts. Current study was also evaluated with a Computer Aided Detection (CAD) system. No significant masses, calcifications, or other findings are seen in either breast. There has been no significant interval change. IMPRESSION: NEGATIVE There is no mammographic evidence of malignancy. A 1 year screening mammogram is recommended. This exam was interpreted at Station ID: [id number]. NOTE: For mammograms, a report in lay terms will be sent to the patient. Approximately 15% of breast malignancies will not be visualized mammographically. In the management of a palpable breast mass, a negative mammogram must not discourage biopsy of a clinically suspicious lesion. Electronically Signed By: Jose Cruz huynh/colleen:01/24/2022 15:43:16 letter sent: Normal Exam ACR BI-RADS Category 1: Negative 3341F
== END ==
PROVIDERS: PCP Naturopath; Referring Provider Naturopath; Visit Provider Naturopath
DX: Z12.31 Encounter for screening mammogram for malignant neoplasm of breast (principal); Z80.3 Family history of malignant neoplasm of breast
CPT/HCPCS: 77063; 77067

== ENCOUNTER → 2022-07-30 07:14 | Outpatient (CLI) | payer OTHER, SELFPAY ==
[2022-07-30 08:05] LABS: Add Manual Diff / Slide Review NO; Basophils Absolute Auto 0 /uL (0-100); Basophils Percent Auto 0.7 % (0-2); Eosinophils Absolute Auto 200 /uL (0-450); Eosinophils Percent Auto 3.5 % (2-4); Hematocrit 39.3 % (36-46); Hemoglobin 13.3 g/dL (12.0-16.0); Lymphocytes Absolute Auto 1500 /uL (1100-4500); Lymphocytes Percent Auto 32.6 % (25-40); Mean Corpuscular HGB Conc 33.8 % (30-36); Mean Corpuscular Hemoglobin 29.4 PG (26-34); Mean Corpuscular Volume 87.1 fL (80-100); Monocytes Absolute Auto 400 /uL (0-900); Neutrophils Absolute Auto 2600 /uL (1500-7000); Neutrophils Percent Auto 55.2 % (50-75); Platelet Count 222 X10^3/uL (150-400); Red Blood Cell Count 4.51 X10^6/uL (4.0-5.2); Red Cell Distribution Width 12.8 % (11.6-14.8); White Blood Cell Count 4.7 X10^3/uL (4.5-11.0)
[2022-07-30 08:17] LABS: Alanine Aminotransferase 38 IU/L (<35); Albumin 4.1 g/dL (3.5-5.0); Albumin Globulin Ratio 1.6 (1.0-2.8); Alkaline Phosphatase 91 U/L (38-126); Aspartate Aminotransferase 27 IU/L (14-36); BUN Creatinine Ratio 20.3 (6-22); Bilirubin Total 0.4 mg/dL (0.2-1.3); Blood Urea Nitrogen 14 mg/dL (7-17); Calcium 9.1 mg/dL (8.4-10.2); Carbon Dioxide 24 mmol/L (22-32); Chloride 105 mmol/L (98-107); Cholesterol 194 mg/dL (140-199); Estimated Glomerular Filt Rate > 60 mL/min (>60); Globulin 2.6 g/dL (1.7-4.1); Glucose 106 mg/dL (70-100); HDL Cholesterol 58 mg/dL (40-60); HEMOLYSIS < 15 (0-50); LDL Cholesterol Calculated 121 mg/dL (<100); Sodium 139 mmol/L (137-145); Total Protein 6.7 g/dL (6.3-8.2); Triglycerides 74 mg/dL (35-150)
[2022-07-30 08:38] LABS: Free T3, Triiodothyronine Free 3.82 pg/mL (2.77-5.27); Free T4, Direct Thyroxine 1.13 ng/dL (0.78-2.19)
[2022-07-30 08:51] LABS: Thyroid Stimulating Hormone 1.15 uIU/mL (0.47-4.68)
[2022-08-01 19:45] LABS: Anti Thyroglobulin Antibody <1.0 IU/mL (0.0-0.9); Thyroid Peroxidase Antibodies 14 IU/mL (0-34)
== END ==
PROVIDERS: PCP Naturopath; Referring Provider Naturopath; Visit Provider Naturopath
DX: Z00.00 Encounter for general adult medical examination without abnormal findings (principal); E04.2 Nontoxic multinodular goiter; E03.9 Hypothyroidism, unspecified
CPT/HCPCS: 36415; 80053; 80061; 84439; 84443; 84481; 85025; 86376; 86800

== ENCOUNTER → 2022-09-20 12:01 | Outpatient (CLI) | payer OTHER, SELFPAY ==
--- NOTE | 2022-09-20 12:02 | DI.RAD.S_ITS ---
PROCEDURE: XR ELBOW RT MIN 3V INDICATIONS: Right elbow injury TECHNIQUE: 3 views of the elbow were acquired. COMPARISON: None. FINDINGS: Bones: No fractures or dislocations. No suspicious bony lesions. Soft tissues: No elbow joint effusion. No suspicious soft tissue calcifications. IMPRESSION: Unremarkable right elbow radiographs Approved by: J Luis Schultz M.D. on 09/20/2022 at 15:20
== END ==
PROVIDERS: PCP Naturopath; Referring Provider Nurse Practitioner Family; Visit Provider Nurse Practitioner Family
DX: S59.901A Unspecified injury of right elbow, initial encounter (principal); W19.XXXA Unspecified fall, initial encounter
CPT/HCPCS: 73080

== ENCOUNTER → 2023-03-10 14:28 | Outpatient (CLI) | payer OTHER, SELFPAY ==
--- NOTE | 2023-03-10 | DI.MG.S_ITS ---
BILATERAL DIGITAL SCREENING MAMMOGRAM 3D/2D WITH CAD: 03/10/2023 CLINICAL: Routine screening. Family history of breast cancer. Comparison is made to exams dated: 01/24/2022 mammogram, 11/28/2020 mammogram, and 11/24/2019 mammogram - [facility]. There are scattered areas of fibroglandular density in both breasts (category b / 25%-50% glandular tissue). Current study was also evaluated with a Computer Aided Detection (CAD) system. No significant masses, calcifications, or other findings are seen in either breast. There has been no significant interval change. IMPRESSION: NEGATIVE There is no mammographic evidence of malignancy. A 1 year screening mammogram is recommended. Based on the Tyrer Cuzick model (a risk assessment model) the patient's lifetime risk is 14.0% and her 10 year risk is 5.2%. According to the ACR, ACS, and NCCN guidelines, an annual breast MRI exam along with mammogram is recommended if the patient's lifetime risk is 20% or greater. This exam was interpreted at Station ID: [id number]. NOTE: For mammograms, a report in lay terms will be sent to the patient. Approximately 15% of breast malignancies will not be visualized mammographically. In the management of a palpable breast mass, a negative mammogram must not discourage biopsy of a clinically suspicious lesion. Electronically Signed By: Belen hunter/colleen:03/11/2023 14:27:59 letter sent: Normal Exam ACR BI-RADS Category 1: Negative 3341F
== END ==
PROVIDERS: PCP Naturopath; Referring Provider Naturopath; Visit Provider Naturopath
DX: Z12.31 Encounter for screening mammogram for malignant neoplasm of breast (principal); Z80.3 Family history of malignant neoplasm of breast
CPT/HCPCS: 77063; 77067

== ENCOUNTER → 2023-06-25 13:51 | Outpatient (CLI) | payer OTHER, SELFPAY ==
[2023-06-25 14:47] LABS: Add Manual Diff / Slide Review NO; Basophils Absolute Auto 0 /uL (0-100); Eosinophils Absolute Auto 100 /uL (0-450); Eosinophils Percent Auto 2.3 % (2-4); Hematocrit 38.2 % (36-46); Lymphocytes Absolute Auto 1800 /uL (1100-4500); Lymphocytes Percent Auto 34.2 % (25-40); Mean Corpuscular HGB Conc 34.1 % (30-36); Mean Corpuscular Hemoglobin 29.7 PG (26-34); Mean Corpuscular Volume 87.1 fL (80-100); Monocytes Absolute Auto 400 /uL (0-900); Neutrophils Absolute Auto 2800 /uL (1500-7000); Neutrophils Percent Auto 54.5 % (50-75); Platelet Count 220 X10^3/uL (150-400); Red Blood Cell Count 4.38 X10^6/uL (4.0-5.2); Red Cell Distribution Width 12.6 % (11.6-14.8); White Blood Cell Count 5.1 X10^3/uL (4.5-11.0)
[2023-06-25 15:07] LABS: Alanine Aminotransferase 64 IU/L (<35); Albumin Globulin Ratio 1.4 (1.0-2.8); Alkaline Phosphatase 83 U/L (38-126); Aspartate Aminotransferase 36 IU/L (14-36); BUN Creatinine Ratio 23.7 (6-22); Bilirubin Total 0.2 mg/dL (0.2-1.3); Blood Urea Nitrogen 18 mg/dL (7-17); Calcium 9.2 mg/dL (8.4-10.2); Carbon Dioxide 26 mmol/L (22-32); Chloride 103 mmol/L (98-107); Cholesterol 206 mg/dL (140-199); Estimated Glomerular Filt Rate > 60 mL/min (>60); Globulin 2.8 g/dL (1.7-4.1); Glucose 92 mg/dL (70-100); HDL Cholesterol 56 mg/dL (40-60); HEMOLYSIS < 15 (0-50); LDL Cholesterol Calculated 127 mg/dL (<100); Potassium 3.9 mmol/L (3.4-5.1); Sodium 137 mmol/L (137-145); Total Protein 6.8 g/dL (6.3-8.2); Triglycerides 113 mg/dL (35-150)
== END ==
PROVIDERS: PCP Naturopath; Referring Provider Naturopath; Visit Provider Naturopath
DX: Z00.00 Encounter for general adult medical examination without abnormal findings (principal)
CPT/HCPCS: 36415; 80053; 80061; 85025

== ENCOUNTER → 2023-07-01 07:26 | Outpatient (CLI) | payer OTHER, SELFPAY ==
--- NOTE | 2023-07-01 | DI.US.S_ITS ---
PROCEDURE: US ABDOMEN LIMITED INDICATIONS: ABNORMAL LFTS TECHNIQUE: Real-time scanning was performed of the abdominal and retroperitoneal organs, with image documentation. COMPARISON: None. FINDINGS: Liver: In the the liver is normal in size and echotexture. There is a solid heterogeneous vascular mass within the left hepatic lobe measuring 7.5 x 5.1 x 5.2 centimeters. Gallbladder: There is a 1.9 centimeter mobile stone with gallbladder. The gallbladder wall is normal in thickness. Sonographic Ortega sign is reportedly positive. Biliary ducts: Intrahepatic bile ducts are non-dilated. Extrahepatic bile duct caliber measures 6.3 mm. Normal is 6-7 mm or less in diameter, or 10 mm or less post-cholecystectomy. Pancreas: Visualized portions of the pancreas are sonographically normal. IMPRESSION: 1. Indeterminate heterogeneous mass within the left hepatic lobe measuring 7.5 centimeters. In the absence of cirrhosis or no metastatic disease, this is favored to be benign in etiology, however malignancy is not excluded. Liver protocol MRI or CT is recommended for further evaluation. 2. There is a 1.9 centimeter mobile stone within the gallbladder. No gallbladder wall thickening or pericholecystic fluid. Sonographic Ortega sign is reportedly negative. Imaging findings are not consistent with acute cholecystitis. Dictated by: Cuco Zhang M.D. on 07/01/2023 at 9:13 Approved by: Cuco Zhang M.D. on 07/01/2023 at 9:17
== END ==
PROVIDERS: PCP Naturopath; Referring Provider Naturopath; Visit Provider Naturopath
DX: R94.5 Abnormal results of liver function studies (principal); R16.0 Hepatomegaly, not elsewhere classified; K80.20 Calculus of gallbladder without cholecystitis without obstruction
CPT/HCPCS: 76705

== ENCOUNTER → 2023-07-14 08:40 | Outpatient (CLI) | payer OTHER, SELFPAY ==
[2023-07-14 11:17] LABS: Hepatitis B Surface Antigen NEGATIVE s/c (NEGATIVE)
[2023-07-15 04:09] LABS: Hepatitis B Surf AB Quant <3.1 mIU/mL (Immunity>9.9)
[2023-07-15 15:52] LABS: Alpha Fetoprotein 1.8 ng/mL (0.0-9.2)
[2023-07-15 21:40] LABS: Hepatitis B Core Antibody Negative (Negative)
== END ==
PROVIDERS: PCP Naturopath; Referring Provider Internal Medicine Gastroenterology; Visit Provider Internal Medicine Gastroenterology
DX: R94.5 Abnormal results of liver function studies (principal); K76.89 Other specified diseases of liver
CPT/HCPCS: 36415; 82105; 86704; 86706; 87340

== ENCOUNTER → 2023-11-19 09:26 | Outpatient (CLI) | payer OTHER, SELFPAY ==
[2023-11-19 11:32] LABS: Alanine Aminotransferase 39 IU/L (<35); Albumin 4.1 g/dL (3.5-5.0); Albumin Globulin Ratio 1.6 (1.0-2.8); Alkaline Phosphatase 73 U/L (38-126); Aspartate Aminotransferase 29 IU/L (14-36); Bilirubin Total 0.7 mg/dL (0.2-1.3); Bilirubin Unconjugated 0.5 mg/dL (0.0-1.1); Globulin 2.6 g/dL (1.7-4.1); HEMOLYSIS < 15 (0-50); Total Protein 6.7 g/dL (6.3-8.2)
== END ==
PROVIDERS: PCP Naturopath; Referring Provider Naturopath; Visit Provider Naturopath
DX: R94.5 Abnormal results of liver function studies (principal)
CPT/HCPCS: 36415; 80076

== ENCOUNTER → 2024-03-04 12:18 | Outpatient (CLI) | payer OTHER, SELFPAY ==
[2024-03-04 15:28] LABS: Free T3, Triiodothyronine Free 3.57 pg/mL (2.77-5.27); Free T4, Direct Thyroxine 1.03 ng/dL (0.78-2.19)
[2024-03-04 15:42] LABS: Thyroid Stimulating Hormone 0.656 uIU/mL (0.47-4.68)
== END ==
LOC: LAB 12:19
PROVIDERS: PCP Naturopath; Referring Provider Naturopath; Visit Provider Naturopath
DX: E04.9 Nontoxic goiter, unspecified (principal)
CPT/HCPCS: 36415; 84439; 84443; 84481

== ENCOUNTER → 2024-04-21 15:17 | Outpatient (CLI) | payer OTHER, SELFPAY ==
--- NOTE | 2024-04-21 15:18 | DI.MG.S_ITS ---
BILATERAL DIGITAL SCREENING MAMMOGRAM 3D/2D WITH CAD: 04/21/2024 CLINICAL: Routine screening. Family history of breast cancer. Comparison is made to exams dated: 03/10/2023 mammogram, 01/24/2022 mammogram, and 11/28/2020 mammogram - [facility]. There are scattered areas of fibroglandular density in both breasts (category b / 25%-50% glandular tissue). Current study was also evaluated with a Computer Aided Detection (CAD) system. No significant masses, calcifications, or other findings are seen in either breast. There has been no significant interval change. IMPRESSION: NEGATIVE There is no mammographic evidence of malignancy. A 1 year screening mammogram is recommended. Based on the Tyrer Cuzick model (a risk assessment model) the patient's lifetime risk is 13.8% and her 10 year risk is 5.4%. According to the ACR, ACS, and NCCN guidelines, an annual breast MRI exam along with mammogram is recommended if the patient's lifetime risk is 20% or greater. This exam was interpreted at Station ID: [id number]. NOTE: For mammograms, a report in lay terms will be sent to the patient. Approximately 15% of breast malignancies will not be visualized mammographically. In the management of a palpable breast mass, a negative mammogram must not discourage biopsy of a clinically suspicious lesion. Electronically Signed By: Lavelle masters/colleen:04/22/2024 11:59:07 letter sent: Normal Exam ACR BI-RADS Category 1: Negative 3341F
--- NOTE | 2024-04-21 15:18 | DI.US.S_ITS ---
PROCEDURE: US THYROID INDICATIONS: NONTOXIC GOITER TECHNIQUE: Real-time scanning was performed of the thyroid gland, with image documentation. COMPARISON: [facility], US, US THYROID, 08/19/2021, 7:30. [facility], US, US THYROID, 08/10/2019, 8:25. FINDINGS: Thyroid: Right lobe measures 3.1 x 2.4 by 5.9 cm. Left lobe measures 2.8 x 3.3 x 6.2 cm. Isthmus is 0.12 cm thick. Measurements are little if any changed from the most recent comparison thyroid ultrasound. Echotexture is heterogeneous as has been previously the case.. Nodule number: 1 Location: Right upper pole Size: 2.4 x 1.5 x 1.8 cm, previously 0.6 x 0.5 x 0.4 cm. Composition: Predominantly solid Echogenicity: Isoechoic Shape: Wider than tall Margins: Indistinct Echogenic foci: Absent Total points: 3.0 ACR TI-RADS category 3: Mildly suspicious, significant enlargement, fine-needle aspiration recommended. Nodule number: 2 Location: Right lower thyroid Size: 2.6 x 1.8 x 2.0 cm, previously 1.0 x 0.4 x 0.8 cm. Composition: Predominantly solid Echogenicity: Isoechoic Shape: Wider than tall Margins: Ill-defined Echogenic foci: None Total points: 3.0 ACR TI-RADS category 3: Mildly suspicious, significant interval enlargement, fine needle aspiration biopsy recommended. Nodule number: 3 Location: Left inferior thyroid Size: 3.3 x 2.1 x 2.9 cm, previously 3.6 x 3.5 x 2.5 cm. Composition: Predominately solid Echogenicity: Isoechoic Shape: Wider than tall Margins: Ill-defined Echogenic foci: None Total points: 3.0 ACR TI-RADS category 3, mildly suspicious: No significant enlargement. Given stability over time biopsy would be not be recommended. Nodule number: 4 Location: Mid to upper left thyroid lobe Size: 1.2 x 1.0 x 0.9 cm, previously 1.0 x 0.7 x 0.8 cm. Composition: Predominantly solid Echogenicity: Isoechoic Shape: wider than tall. Margins: Ill-defined Echogenic foci: None Total points: 3.0 ACR TI-RADS category 3, mildly suspicious: Given small size and absence of significant change analyst time biopsy is not recommended at this time. IMPRESSION: Recommend fine needle aspiration biopsy of the 2 nodules that have significantly enlarged within the right thyroid lobe. The 2 left-sided thyroid nodules have not significantly changed and therefore biopsy at this time is not recommended. ACR TI-RADS definitions and recommendations: TI-RADS 1 (benign): 0 points. FNA not needed. TI-RADS 2 (not suspicious): 2 points. FNA not needed. TI-RADS 3 (mildly suspicious): 3 points. * FNA if 2.5 cm or larger, follow up if 1.5 cm or larger (at 1, 3, and 5 years). TI-RADS 4 (moderately suspicious): 4-6 points. * FNA if 1.5 cm or larger, follow up if 1 cm or larger (at 1, 2, 3, and 5 years). TI-RADS 5 (highly suspicious): 7 points or more. * FNA if 1 cm or larger, follow up if 0.5 cm or larger (every year for 5 years). Dictated by: Xavier Calvillo M.D. on 04/22/2024 at 13:55 Approved by: Xavier Calvillo M.D. on 04/22/2024 at 14:35
== END ==
PROVIDERS: PCP Naturopath; Referring Provider Naturopath; Visit Provider Naturopath
DX: Z12.31 Encounter for screening mammogram for malignant neoplasm of breast (principal); Z80.3 Family history of malignant neoplasm of breast; R92.323 Mammographic fibroglandular density, bilateral breasts; E04.2 Nontoxic multinodular goiter
CPT/HCPCS: 76536; 77063; 77067

== ENCOUNTER → 2024-06-08 12:18 | Outpatient (CLI) | payer OTHER, SELFPAY ==
--- NOTE | 2024-06-08 12:19 | DI.US.S_ITS ---
PROCEDURE: US FINE NEEDLE ASPIRATION INDICATIONS: THYROID NODULES TECHNIQUE: The indications, alternatives, benefits, risks, and complications of the procedure were explained to the patient. Written informed consent was obtained and placed in the chart. The thyroid region was examined sonographically and a site was chosen for ultrasound guided percutaneous sampling. The skin was prepared and draped in the usual fashion, and anesthetized with 1% lidocaine infiltrated from the skin down to the thyroid gland. Multiple passes were then performed, with contents emptied into an appropriate pathology specimen container. A bandage was applied to the area of access at completion of the study. COMPARISON: None. FINDINGS: Location(s) of lesion(s) sampled: Upper to midpole right thyroid lobe nodule and lower pole right thyroid lobe nodule. [place]: 25 gauge hypodermic needles. Number of passes: 8 for each nodule Medications: 1% lidocaine for local anaesthesia. Complications: None. IMPRESSION: Successful ultrasound-guided thyroid nodule fine needle aspiration, with cytology results pending. Please see chart below for management recommendations based on cytology results. [place] [facility] ReportingRecommendationsNon-diagnostic* Repeat US-guided FNA, with on-site cytology evaluation if possible. * Repeated non-diagnostic nodules without high suspicion US features: close observation vs surgical consult. * Consider surgery if nodule has high suspicion US features, grows >20% in 2 dimensions on followup, or patient has clinical risk factors for malignancy. Benign* If nodule has high suspicion US features: repeat US and FNA within 12 months. * If nodule has low to intermediate suspicion US features: repeat US at 12-24 months. If nodule grows (20% increase in at least 2 dimensions, with minimal increase of 2 mm or >50% change in volume), or development of new suspicious US features, then repeat FNA or continue followup. * If nodule has very low suspicion US features: followup US at >24 months. Atypia of undetermined significance, follicular lesion of undetermined significanceRepeat FNA, molecular testing, followup US, or surgical consult.Follicular neoplasm, suspicious for follicular neoplasmSurgical consult; also consider molecular testing. Suspicious for malignancySurgical consult.MalignantSurgical consult. Dictated by: Barrett Smith M.D. on 06/08/2024 at 16:02 Approved by: Barrett Smith M.D. on 06/08/2024 at 16:03
--- NOTE | 2024-06-08 13:25 | PATH_ITS ---
Note [facility] Accession Number: [id number] TESTS RESULT FLAG UNITS REF RANGE LAB Clinician Provided Cytology Information No. of containers..01 Other (Miscellaneous) No. of containers..06 Previously Prepared Cytology Slide Source: RIGHT THYROID UPPER DIAGNOSIS: RIGHT THYROID UPPER/MID POLE NODULE #1, FINE NEEDLE ASPIRATION. ADEQUATE FOR EVALUATION. COLLOID AND FOLLICULAR GROUPS ARE PRESENT. BENIGN FOLLICULAR (GOITEROUS) NODULE (BETHESDA CATEGORY II), SEE COMMENT. COMMENT: MICROSCOPIC EXAMINATION REVEALS A CELLULAR ASPIRATE, COMPOSED OF FOLLICULAR GROUPS WITHOUT SIGNIFICANT CYTOLOGIC OR ARCHITECTURAL ATYPIA, COLLOID AND NUMEROUS BACKGROUND HEMOSIDERIN-LADEN MACROPHAGES (AND MULTINUCLEATED CELLS) FAVOR CYSTIC/DEGENERATIVE CHANGES OR PREVIOUS BIOPSY CHANGES (IF CLINICAL HISTORY SUPPORTS). THESE FINDINGS ARE CONSISTENT WITH A BENIGN FOLLICULAR (GOITEROUS) NODULE. CORRELATION WITH CLINICAL AND RADIOGRAPHIC FINDINGS IS RECOMMENDED TO ENSURE THAT THE LESION HAS BEEN ADEQUATELY SAMPLED. ACCORDING TO THE [place] REPORTING SYSTEM FOR THYROID CYTOPATHOLOGY, THE RISK OF MALIGNANCY IN THE CATEGORY BENIGN-CATEGORY II IS 0-3%; THEREFORE RECOMMEND CONTINUED ULTRASOUND SURVEILLANCE WITH REPEAT FNA IF THE NODULE SIGNIFICANTLY INCREASES IN SIZE. 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 EXP: 09/22/2024 SUSANA /TAM 06/09/2024 1322 Local FLAG LEGEND: L-Low Normal,H-High Normal,LL-Alert Low,HH-Alert High <-Panic Low,>-Panic High,A-Abnormal,AA-Critical Abnormal Performed at: [address] [address], [place] [address] David Modi MD, Performed at: [address] [address], [place], [place] [id number] MD David Modi MD Phone: [phone]
--- NOTE | 2024-06-08 13:26 | PATH_ITS ---
Note [facility] Accession Number: [id number] TESTS RESULT FLAG UNITS REF RANGE LAB Clinician Provided Cytology Information No. of containers..01 Other (Miscellaneous) No. of containers..06 Previously Prepared Cytology Slide Source: RIGHT THYROID LOWER DIAGNOSIS: RIGHT THYROID LOWER POLE NODULE #2, FINE NEEDLE ASPIRATION. ADEQUATE FOR EVALUATION. COLLOID AND FOLLICULAR GROUPS ARE PRESENT. FAVOR BENIGN FOLLICULAR (GOITEROUS) NODULE (BETHESDA CATEGORY II), SEE COMMENT. COMMENT: MICROSCOPIC EXAMINATION REVEALS A MILDLY CELLULAR ASPIRATE, COMPOSED OF FEW FOLLICULAR GROUPS WITHOUT CYTOLOGIC OR ARCHITECTURAL ATYPIA, COLLOID, AND MACROPHAGES. THESE FINDINGS OVERALL FAVOR A BENIGN FOLLICULAR (GOITEROUS) NODULE. HOWEVER, SINCE THIS ASPIRATE IS MILDLY CELLULAR, IT MAY NOT BE CONCAVER OF THE PATIENT'S LESION. CORRELATION WITH CLINICAL AND RADIOGRAPHIC FINDINGS IS RECOMMENDED TO ENSURE THAT THE LESION HAS BEEN ADEQUATELY SAMPLED. ACCORDING TO THE [place] REPORTING SYSTEM FOR THYROID CYTOPATHOLOGY, THE RISK OF MALIGNANCY IN THE CATEGORY BENIGN-CATEGORY II IS 0-3%; THEREFORE RECOMMEND CONTINUED ULTRASOUND SURVEILLANCE WITH REPEAT FNA IF THE NODULE SIGNIFICANTLY INCREASES IN SIZE. Pathologist ICD10: 01 E04.1 Signed out by: Viv Villafana MD, Pathologist NPI- [id number] Performed by: Delfin Farrell, Rig Superintendent ([facility]) Gross description: 01 30 CC, COLORLESS, CLEAR RECEIVED IN CYTOLYT WHITE CAP CONTAINER. RECEIVED 8 STAINED SLIDES IN 2 SLIDE HOLDERS. RECEIVED 8 FIXED ALCOHOL SLIDES IN 2 GREEN CAP COFFINS. RECEIVED 1 RNA VIAL. EXP: 09/22/2024 SUSANA /TAM 06/09/2024 1323 Local FLAG LEGEND: L-Low Normal,H-High Normal,LL-Alert Low,HH-Alert High <-Panic Low,>-Panic High,A-Abnormal,AA-Critical Abnormal Performed at: [address] [address], [place] [address] David Modi MD, Performed at: [address] [address], [place], [place] [id number] MD David Modi MD Phone: [phone]
== END ==
PROVIDERS: PCP Naturopath; Referring Provider Naturopath; Visit Provider Naturopath
DX: E04.2 Nontoxic multinodular goiter (principal); R05.9 Cough, unspecified
CPT/HCPCS: 10005; 10006

== ENCOUNTER → 2024-12-23 08:45 | Outpatient (CLI) | payer BC, SELFPAY ==
[2024-12-23 10:02] LABS: Add Manual Diff / Slide Review NO; Basophils Absolute Auto 0 /uL (0-100); Basophils Percent Auto 0.9 % (0-2); Eosinophils Absolute Auto 100 /uL (0-450); Eosinophils Percent Auto 2.8 % (2-4); Hematocrit 43.9 % (36-46); Hemoglobin 14.8 g/dL (12.0-16.0); Lymphocytes Absolute Auto 1600 /uL (1100-4500); Lymphocytes Percent Auto 35.6 % (25-40); Mean Corpuscular HGB Conc 33.6 % (30-36); Mean Corpuscular Hemoglobin 29.4 PG (26-34); Mean Corpuscular Volume 87.5 fL (80-100); Monocytes Absolute Auto 400 /uL (0-900); Monocytes Percent Auto 8.9 % (3-14); Neutrophils Absolute Auto 2400 /uL (1500-7000); Neutrophils Percent Auto 51.8 % (50-75); Platelet Count 207 X10^3/uL (150-400); Red Blood Cell Count 5.02 X10^6/uL (4.0-5.2); Red Cell Distribution Width 13.2 % (11.6-14.8); White Blood Cell Count 4.6 X10^3/uL (4.5-11.0)
[2024-12-23 10:21] LABS: Alanine Aminotransferase 30 IU/L (<35); Albumin 4.3 g/dL (3.5-5.0); Alkaline Phosphatase 80 U/L (38-126); Aspartate Aminotransferase 30 IU/L (14-36); BUN Creatinine Ratio 31.8 (6-22); Bilirubin Total 0.6 mg/dL (0.2-1.3); Blood Urea Nitrogen 21 mg/dL (7-17); Calcium 9.6 mg/dL (8.4-10.2); Carbon Dioxide 22 mmol/L (22-32); Chloride 107 mmol/L (98-107); Cholesterol 192 mg/dL (140-199); Estimated Glomerular Filt Rate > 60 mL/min (>60); Globulin 2.2 g/dL (1.7-4.1); Glucose 101 mg/dL (70-100); HDL Cholesterol 58 mg/dL (40-60); HEMOLYSIS < 15 (0-50); LDL Cholesterol Calculated 117 mg/dL (<100); Potassium 4.2 mmol/L (3.4-5.1); Sodium 139 mmol/L (137-145); Total Protein 6.5 g/dL (6.3-8.2); Triglycerides 83 mg/dL (35-150)
[2024-12-23 10:34] LABS: Free T3, Triiodothyronine Free 4.51 pg/mL (2.77-5.27); Free T4, Direct Thyroxine 1.11 ng/dL (0.78-2.19)
[2024-12-23 10:48] LABS: Thyroid Stimulating Hormone 1.09 uIU/mL (0.47-4.68)
== END ==
PROVIDERS: PCP Naturopath; Referring Provider Naturopath; Visit Provider Naturopath
DX: Z00.00 Encounter for general adult medical examination without abnormal findings (principal); E04.9 Nontoxic goiter, unspecified
CPT/HCPCS: 36415; 80053; 80061; 84439; 84443; 84481; 85025; 86800